=== PATIENT | male | born 1970 | race Caucasian/White ===

== ENCOUNTER → 2024-11-19 15:17 | Outpatient (CLI) | payer OTHER, SELFPAY ==
--- NOTE | 2024-11-19 15:21 | DI.ECHO.S_ITS ---
[facility] +---------+ [facility] : : [address] : : [place] : : [id number] : : Phone: [phone] Echocardiogram Report + + :Name: MARLENY HARKINS Study Date: 11/19/2024 Height: 77 in : :Hospital ReadingLocation: Weight: 335 lb : : Gender: Male BSA: 2.8 m2 : :: 1970 Age: 54 yrs BP: 149/102 mmHg: :Reason For Study: ARRHYTHMIA : :Ordering Physician: ANNEMARIE, : :SPENCER Performed By: Trace Arreola : :Referring: SPENCER SHARPE : + + Interpretation Summary Technically difficult study due to elevated BSA. Normal left ventricular size and systolic function. LVEF is 50 to 55%. RV was not well visualized. Left atrium is mildly dilated. RA is moderately dilated. Aorta is mildly dilated at 3.9 cm Other findings as below. Procedure: A two-dimensional transthoracic echocardiogram with color flow and Doppler was performed. The study quality was technically difficult. There is no prior echocardiogram noted for this patient. The patient was in atrial fibrillation with heart rates between 71-99 bpm during the exam. Left Ventricle: The left ventricle is normal in size. Left ventricular wall thickness is mildly increased. There is no ventricular septal defect visualized. The ejection fraction is estimated to be 50-55%. There are no focal wall motion abnormalities. Diastolic function could not be accurately assessed due to atrial fibrillation. Right Ventricle: The right ventricle is not well visualized. There is a pacemaker lead in the right ventricle. Atria: The left atrium is mildly dilated. The right atrium is moderately dilated. The interatrial septum is not well visualized. Mitral Valve: The mitral valve leaflets appear mildly thickened. There is no mitral regurgitation noted. Aortic Valve: The aortic valve is trileaflet. The aortic valve opens well. No aortic regurgitation is present. Tricuspid Valve: The tricuspid valve is not well visualized. No tricuspid regurgitation. Pulmonic Valve: The pulmonic valve is not well visualized. There is no pulmonic valvular regurgitation. Great Vessels: The aortic root is mildly dilated. The dimensions of the ascending aorta are normal. The pulmonary is not well visualized. The inferior vena cava was not visualized. Pericardium/ Pleura There is no pericardial effusion. MMode/2D Measurements & Calculations LVIDd: 5.0 cm LVOT diam: 2.4 cm LVIDs: 3.7 cm Ao root diam: 3.9 cm FS: 26.7 % asc Aorta Diam: 3.6 cm EPSS: 0.62 cm Ao Arch Diam (Prox Trans): 1.5 cm IVSd: 1.1 cm LVPWd: 1.1 cm LV salvador. diameter/BSA (cm/m^2): 1.8 LV sys. diameter/BSA (cm/m^2): 1.3 LA A2 area: 33.2 cm2 RA long axis: 6.1 cm LA A4 area: 28.8 cm2 RA area: 25.0 cm2 LA length (vol): 6.6 cm RA vol: 86.7 ml LA vol: 124.2 ml RA : 31.1 ml/m2 LA vol index: 44.6 ml/m2 TAPSE: 3.0 cm Doppler Measurements & Calculations Ao V2 max: 108.0 cm/sec LVOT Max Robin: 83.7 cm/sec Ao V2 mean: 76.1 cm/sec LV V1 max P.8 mmHg Ao max P.7 mmHg LV V1 VTI: 17.8 cm Ao mean P.5 mmHg YOJANA(I,D): 4.1 cm2 Ao V2 VTI: 20.0 cm YOJANA(V,D): 3.6 cm2 sev ratio: 0.89 YOJANA indexed to BSA (cm^2/m^2): 1.5 MV E max robin: 79.1 cm/sec PA V2 max: 86.6 cm/sec MV A max robin: 1.9 cm/sec PA V2 mean: 65.1 cm/sec MV E/A: 42.7 PA mean P.8 mmHg Med Peak E' Robin: 7.8 cm/sec PA pr(Accel): 34.5 mmHg E/E' med: 10.1 Lat Peak E' Robin: 10.9 cm/sec E/E' lat: 7.2 E/e' average: 8.7 MV dec time: 0.10 sec SV(LVOT): 82.5 ml Reading Physician:04:48 PM
== END ==
LOC: ECHO 15:20
PROVIDERS: Referring Provider Chiropractor; Visit Provider Chiropractor
DX: I49.9 Cardiac arrhythmia, unspecified (principal); I77.810 Thoracic aortic ectasia
CPT/HCPCS: 93306